=== PATIENT | male | born 1985 | race Hispanic/Latino ===

== ENCOUNTER 2021-09-07 08:12 | Emergency (ER) | payer BC ==
[~2021-09-07] VITALS: Ht 180.3 cm; Wt 99.8 kg
[2021-09-07] MEDS ORDERED: KETOROLAC 30MG VIAL (30MG/ML) IV SCH (09:00)
[2021-09-07] MEDS ORDERED: ORPHENADRINE CITRATE 30 MG/ML ML IV SCH (09:00)
[2021-09-07 09:15] LABS: APPEARANCE,URINE Clear (CLEAR); BILIRUBIN,URINE Negative (NEGATIVE); COLOR,URINE Yellow (YELLOW); GLUCOSE, URINE (UA) Negative (NEGATIVE); KETONES,URINE Negative (NEGATIVE); LEUKOCYTE ESTERASE ,URINE Negative (NEGATIVE); NITRATE,URINE Negative (NEGATIVE); OCCULT BLOOD,URINE Negative (NEGATIVE); PROTEIN,URINE Negative (NEGATIVE); UROBILINOGEN,URINE 0.2 mg/dL (0.2-1.0)
[2021-09-07 09:55] VITALS: BP 115/72
[2021-09-07] MEDS ORDERED: DICL50TA9 PO (09:58)
[2021-09-07] MEDS ORDERED: CYCL10TA16 PO (09:58)
[2021-09-07] MEDS ORDERED: HYDROMORPHONE 1 MG INJ IM SCH (11:00)
== END 2021-09-07 10:10 | disposition home or self-care (01) ==
LOC: EDH 08:12
DX: M54.50 Low back pain, unspecified (principal); Z79.1 Long term (current) use of non-steroidal anti-inflammatories (NSAID)
CPT/HCPCS: 72100; 81003; 96374; 96375; 99284; J1170; J1885; J2360